=== PATIENT | male | born 1990 | race African-American/Black ===

== ENCOUNTER 2025-03-15 20:20 | Emergency (ER) | payer MEDICAID ==
[~2025-03-15] VITALS: Ht 188 cm; Wt 75.2 kg
[2025-03-15 20:42] VITALS: O2SAT 99
[2025-03-16] MEDS ORDERED: CYCL10TA21 MT (00:14)
[2025-03-16 00:41] VITALS: BP 114/69; PULSE 60; RESP 18; TEMP 36.6; O2SAT 100
== END 2025-03-16 00:43 | disposition home or self-care (01) ==
LOC: ER 20:20
DX: M25.512 Pain in left shoulder (principal); M79.602 Pain in left arm; R03.0 Elevated blood-pressure reading, without diagnosis of hypertension
CPT/HCPCS: 99283